=== PATIENT | male | born 1995 | race Caucasian/White ===

== ENCOUNTER 2020-02-14 12:01 | Inpatient (IN) | payer MEDICAID ==
[2020-02-14] MEDS ORDERED: HALOPERIDOL 5 MG TABLET PO PRN (14:15)
[2020-02-14 14:17] VITALS: BP 151/92
[2020-02-14] MEDS ORDERED: DOCUSATE SODIUM 100 MG CAPSULE PO PRN (16:00)
[2020-02-14] MEDS ORDERED: PETROLATUM,WHITE 28 GM JELLY TP PRN (16:00)
[2020-02-14] MEDS ORDERED: NICOTINE 14 MG/24 HOUR PATCH TD PRN (16:00)
[2020-02-14] MEDS ORDERED: ACETAMINOPHEN 325 MG TABLET PO PRN (16:00)
[2020-02-14] MEDS ORDERED: MAG HYDROX/AL HYDROX/SIMETH ES 30 ML SUSPENSION UDCUP PO PRN (16:00)
[2020-02-14] MEDS ORDERED: LOPERAMIDE HCL 2 MG CAPSULE PO PRN (16:00)
[2020-02-14] MEDS ORDERED: CloNIDine HCL 0.1 MG TABLET PO PRN (16:00)
[2020-02-14] MEDS ORDERED: IBUPROFEN 400 MG TABLET PO PRN (16:00)
[2020-02-14] MEDS ORDERED: GuaiFENesin/D-METHORPHAN [SUGAR-FREE] 200-20MG/10 ML SYRUP UDCUP PO PRN (16:00)
[2020-02-14] MEDS ORDERED: ALBUTEROL SULFATE HFA 90 MCG/PUFF 8 GM INHALER IH PRN (16:00)
[2020-02-14] MEDS ORDERED: ONDANSETRON HCL 4 MG TABLET PO PRN (16:00)
[2020-02-14 16:39] VITALS: BP 123/81
[2020-02-14] MEDS: LORazepam 2 MG TABLET PO PRN ×2 (17:38→23:52)
[2020-02-14] MEDS: MAGNESIUM HYDROXIDE SUSPENSION 30 ML UDCUP PO PRN (18:33)
[2020-02-14] MEDS: ZOLPIDEM TARTRATE 10 MG TABLET PO PRN (23:53)
[2020-02-15 03:38] VITALS: BP 118/72
[2020-02-15 08:10] LABS: BASOPHILS % (AUTO) 0.9 % (0.0-2.0); EOSINOPHILS % (AUTO) 3.6 % (1.0-6.0); HEMATOCRIT 45.9 % (41-53); HEMOGLOBIN 15.6 g/dL (13.5-17.5); LYMPHOCYTES # (AUTO) 1.9 K/uL (1.0-4.8); LYMPHOCYTES % (AUTO) 42.2 % (22.0-44.0); MEAN CORPUSCULAR HEMOGLOBIN 31.5 pg (26.0-34.0); MEAN CORPUSCULAR HGB CONC 34.1 G/dL (31.0-37.0); MEAN CORPUSCULAR VOLUME 92 fL (80-100); MONOCYTES # (AUTO) 0.4 K/uL (0.1-1.0); MONOCYTES % (AUTO) 9.2 % (2.0-9.0); NEUTROPHILS # (AUTO) 1.9 K/uL (1.8-7.7); NEUTROPHILS % (AUTO) 44.1 % (40.0-70.0); PLATELET COUNT (AUTO) 217 K/uL (150-450); RED BLOOD CELL COUNT(AUTO) 4.97 MIL/uL (4.50-5.90); RED CELL DISTRIBUTION WIDTH 13.2 % (11.5-14.5)
[2020-02-15 08:20] LABS: ALANINE AMINOTRANSFERASE 27 U/L (12-78); ALKALINE PHOSPHATASE 74 U/L (46-116); ANION GAP 9 mmol/L (8-16); ASPARTATE AMINOTRANSFERASE 14 U/L (15-37); CALCIUM, TOTAL 9.2 mg/dL (8.8-10.5); CARBON DIOXIDE 28 mmol/L (22-29); CHLORIDE 103 mmol/L (98-107); CHOL/HDL RATIO 2.2 (4.2-7.3); CHOLESTEROL 96 mg/dL (131-200); CREATININE 1.07 mg/dL (0.60-1.30); GLOMERULAR FILTR. RATE CALC > 60 mL/min (>60); GLUCOSE,RANDOM 100 mg/dL (70-110); HDL CHOLESTEROL 44 mg/dL (40-60); LDL CHOL (CALC.) 43 mg/dL (0-130); POTASSIUM 4.1 mmol/L (3.5-5.1); SODIUM SERUM 140 mmol/L (136-145); TOTAL PROTEIN, SERUM 8.5 g/dL (6.4-8.2); TRIGLYCERIDES 47 mg/dL (15-150); UREA NITROGEN, BLOOD 17 mg/dL (7-18)
[2020-02-15 09:20] VITALS: BP 141/78
[2020-02-15] MEDS: LORazepam 2 MG TABLET PO PRN ×2 (10:52→14:55)
[2020-02-15 16:21] VITALS: BP 132/86
[2020-02-15] MEDS: OLANZapine 5 MG TABLET PO SCH (21:48)
[2020-02-16] MEDS: LORazepam 2 MG TABLET PO PRN (08:54)
[2020-02-16] MEDS: OLANZapine 5 MG TABLET PO SCH ×2 (08:55→20:34)
[2020-02-16 09:12] VITALS: BP 135/72
[2020-02-16 16:11] VITALS: BP 135/66
[2020-02-16] MEDS: ZOLPIDEM TARTRATE 10 MG TABLET PO PRN (23:04)
[2020-02-17 05:05] VITALS: BP 134/60
[2020-02-17] MEDS: MAGNESIUM HYDROXIDE SUSPENSION 30 ML UDCUP PO PRN (07:10)
[2020-02-17 08:18] VITALS: BP 145/76
[2020-02-17] MEDS: OLANZapine 5 MG TABLET PO SCH (08:38)
[2020-02-17] MEDS ORDERED: OLAN5TAB2 PO (12:23)
== END 2020-02-17 15:10 | disposition home or self-care (01) | DRG 753 ==
LOC: B3A 14:10
DX: F31.2 Bipolar disorder, current episode manic severe with psychotic features (principal); R00.0 Tachycardia, unspecified; D72.819 Decreased white blood cell count, unspecified; F41.9 Anxiety disorder, unspecified; R03.0 Elevated blood-pressure reading, without diagnosis of hypertension
CPT/HCPCS: 83036